=== PATIENT | male | born 1950 | race Caucasian/White ===

== ENCOUNTER 2019-04-28 10:17 | Outpatient (CLI) | payer MEDICARE, SELFPAY | END 2019-04-28 10:18 | disposition home or self-care (01) | LOC: ONCMED 10:17 | PROVIDERS: Visit Provider Internal Medicine Hematology & Oncology | DX: Z08 Encounter for follow-up examination after completed treatment for malignant neoplasm (principal); Z85.038 Personal history of other malignant neoplasm of large intestine; J44.9 Chronic obstructive pulmonary disease, unspecified; I25.10 Atherosclerotic heart disease of native coronary artery without angina pectoris; I25.2 Old myocardial infarction; E78.5 Hyperlipidemia, unspecified; Z90.49 Acquired absence of other specified parts of digestive tract; Z87.891 Personal history of nicotine dependence; Z92.21 Personal history of antineoplastic chemotherapy | CPT/HCPCS: 99204 ==

== ENCOUNTER 2019-05-18 08:26 | Outpatient (CLI) | payer MEDICARE, SELFPAY ==
--- NOTE | 2019-05-18 08:41 | CT_ITS ---
WS: [id number] CT CHEST, ABDOMEN, AND PELVIS TECHNIQUE: Contrast-enhanced CT of the chest, abdomen, and pelvis with coronal and sagittal reformatt ed images. CLINICAL INFORMATION: COLON CANCER COMPARISON: None. DLP: 1472.[address] scans at [facility] use at least one of these dose optimization techniques: automat ed exposure control; mA and/or kV adjustment per patient size (includes targeted exams where dose is matched to clinical indication); or iterative reconstruction. CT CHEST: Moderate chronic emphysematous changes. No acute pulmonary infiltrates. Slight bibasilar atelectasis. No consolidation or pleural fluid. No suspicious pulmonary parenchymal abnormalities. Thyroid gland is normal. No mediastinal or hilar lymphadenopathy. Coronary calcification. Normal endo bronchial tree. No axillary lymphadenopathy. Hypertrophic changes thoracic spine with mild thoracic c urve. CT ABDOMEN AND PELVIS: Mild diffuse fatty infiltration of the liver. Cholecystectomy clips. Normal portal vein and splenic v ein. Normal spleen. Normal GE junction. Diffuse segment of colonic wall thickening ascending right co tariq and hepatic flexure with stenosis presumably due to patient's known carcinoma. Dominant area of t hickening extends over approximately 6.5 CM. Additional less prominent thickening extending into the hepatic flexure. Mid and distal transverse colon are normal. Descending colon and sigmoid colon are n ormal. Prior postoperative changes distal sigmoid with end-to-end anastomosis. Normal spleen. Normal pancreatic parenchymal enhancement. Normal caliber abdominal aorta. Mild aortic calcification. Adrenal glands are normal. Small bilateral peripelvic renal cysts. No hydronephrosis. Mild renal cortical atrophy. A few slightly prominent upper abdominal lymph nodes largest measuring 10 mm not pathologically enlar ged. No periaortic or retroperitoneal lymphadenopathy. No inguinal or pelvic sidewall lymphadenopathy . Prostate enlargement measuring 5.[address]/CT chest abd pel w con* IMPRESSION: 1. Diffuse segment of colonic wall thickening consistent with patient's known carcinoma involving the right ascending colon and hepatic flexure. 2. No evidence of distant metastatic disease in the chest abdomen or pelvis. 3. A few prominent lymph nodes in the upper abdomen not pathologically enlarge d. 4. No evidence of metastatic disease in the chest. No mediastinal or hilar lym phadenopathy. 5. Moderate chronic emphysematous changes. 6. Prostate enlargement measuring 5.3 x 4.4 CM. Recommend Correlation PSA.
[2019-05-18 09:19] LABS: Basophils % 0.6 %; Eosinophils # 0.2 10^3/uL (0.0-0.8); Eosinophils % 2.3 %; Hematocrit 48.3 % (42.0-52.0); Hemoglobin 16.6 g/dL (11.7-16.6); Lymphocytes % 30.9 %; Mean Corpuscular HGB Conc 34.4 g/dL (30.0-36.0); Mean Corpuscular Hemoglobin 29.1 pg (28.0-34.0); Mean Corpuscular Volume 84.6 fL (80-94); Mean Platelet Volume 9.4 fL (7.4-10.4); Monocytes # 0.6 10^3/uL (0.2-0.9); Monocytes % 9.9 %; Neutrophils # 3.6 10^3/uL (1.8-7.7); Nucleated Red Blood Cells % 0 %; Platelet Count 186 10^3/cmm (130-400); Red Blood Count 5.71 10^6/uL (4.1-5.3); Red Cell Distribution Width 12.2 % (12.1-15.1); White Blood Count 6.4 10^3/uL (4.0-10.0)
[2019-05-18 09:38] LABS: Carcinoembryonic Antigen 1.6 ng/mL (0.0-4.7)
[2019-05-18 09:49] LABS: Alanine Aminotransferase 24 U/L (0-41); Albumin Level 4.1 g/dL (3.5-5.2); Alkaline Phosphatase 90 IU/L (40-130); Anion Gap 15.7 (5-19); Aspartate Amino Transferase 17 U/L (0-40); Blood Urea Nitrogen 13 mg/dL (8-23); Calcium 9.7 mg/dL (8.5-10.5); Carbon Dioxide 28 mmol/L (22-29); Chloride 98 mmol/L (98-107); Globulin 3.6 g/dL (1.3-4.6); Glomerular Filtration Rate 84.4 mL/min (90-130); Glucose 104 mg/dL (65-115); Potassium 4.7 mmol/L (3.5-5.1); Sodium 137 mmol/L (136-145); Total Bilirubin 0.5 mg/dL (0.15-1.2); Total Protein 7.7 g/dL (6.6-8.7)
[2019-05-18] MEDS: iohexol 300 mg/mL 100 mL Btl IV (10:13)
[2019-05-18] MEDS: iohexol 300 mg/mL 50 mL Btl PO (10:15)
== END 2019-05-18 08:27 | disposition home or self-care (01) ==
PROVIDERS: PCP Internal Medicine Hematology & Oncology; Visit Provider Internal Medicine Hematology & Oncology
DX: C18.2 Malignant neoplasm of ascending colon (principal); N40.0 Benign prostatic hyperplasia without lower urinary tract symptoms; Z90.49 Acquired absence of other specified parts of digestive tract
CPT/HCPCS: 36415; 71260; 74177; 80053; 82378; 85025; Q9967

== ENCOUNTER 2019-05-20 08:12 | Outpatient (CLI) | payer MEDICARE, SELFPAY ==
--- NOTE | 2019-05-20 10:31 | ONC FU_ITS ---
Dr. Villatoro follow up note Patient: Donavon Hinton Unit #: [id number]: 1950 Dicatated By: Mohinder Villatoro M.D.Date of Visit:May 20, 2019 Onc Med Follow-up/Prog Note History of Present Illness: Mr. Donavon Hinton, is a 68-year-old gentleman with a history of colon cancer with liver metastases diagnosed per colonoscopy done on 05/02/2016 which showed sigmoid colon mass biopsy biopsy confirmed adenocarcinoma underwent sigmoid colon resection on 08/13/2016 , CT scan/PET scan/MRI scan of liver confirmed single liver metastases patient received 4 cycles of FOLFOX till 10/16/2016 and on 11/12/2016 underwent hepatic resection for solitary liver metastases followed by adjuvant FOLFOX, patient agreed for 4 cycle although 8 more cycles were suggested. He was followed in oncology clinic in [place] with CT scan of chest abdomen pelvis and tumor marker CEA and was in remission, and last visit was on 04/29/2018 at that time he was told he is in complete remission and suggested to get follow-up CT scan of chest abdomen pelvis in a year. Patient moved down to [facility] because of cost of living in the [place] and close to his brother who lives in [facility]. f/u CT scan of abdomen pelvis done on 05/18/2019 showed diffuse segment of colonic wall thickening consistent with patient known carcinoma involving the right ascending colon and hepatic flexure. No evidence of distant metastases in the chest abdomen pelvis. A few prominent lymph nodes in the upper abdomen not pathologically enlarged. Moderate chronic emphysematous changes. Prostrate enlargement 5.3 x 4.4 cm. Came for follow-up, denies any specific complaints except off and on constipation and abdominal fullness especially with large meals otherwise no fever or chills no melena hematochezia no hemoptysis no hematemesis. No jaundice. Occasionally abdominal cramps. Medications: Medical [place] Miscellaneous Allergies: No Known Allergies. Review of Systems: Constitutional - Appetite is good and weight is increasing. No fever, chills, hot flashes, or night sweats. Energy level is good, ENMT - No sinus congestion/drainage. No mouth sores. No sore throat or difficulty swallowing, Hematologic/Lymphatic - Positive for easy bruising, Respiratory - No shortness of breath. No cough. No pleuritic pain or hemoptysis, Cardiovascular - No angina pain. No palpitations, Gastrointestinal - No nausea or vomiting. No heartburn or acid reflux. No diarrhea. Positive for constipation. No blood in the stool or black stools, Genitourinary (M) - No dysuria or hematuria. No urinary frequency. No urgency or incontinence, Musculoskeletal - Positive for joint pain, Neurologic - No headache or dizziness. No numbness/paresthesias or other focal neurologic symptoms, Psychiatric - No anxiety or depression. Positive for insomnia. Vital Signs: Performed on May 20, 2019 08:32 Height - 66.00 in Weight - 187.2 lbs (HIGH) BSA - 1.94 sq.m BMI - 30.22 (HIGH) Temperature - 97.5 F (LOW) Pulse - 72 /min Respiration - 18 /min BP - 144/91 mm(hg) (HIGH) O2 Sat - 97 % Pain - 0 Performance Status: 0 - Fully active, able to carry on all predisease activities without restrictions. (ECOG) Physical Examination: ENMT - No oral exudates, ulcers, masses, thrush or mucositis. Oropharynx clear. Tongue normal, Respiratory - Lungs are clear to auscultation without rhonchi or wheezing, Cardiovascular - Regular rate and rhythm of heart, Abdomen - Non-tender, non-distended, Good bowel sounds. No guarding or rebound tenderness. No pulsatile masses, Extremities - no edema. Lab/Imaging: Most recent lab results are not available for this patient. Impression: Metastatic colon cancer with solitary liver metastases diagnosed on 05/02/2016 per colonoscopy examination which showed sigmoid colon mass underwent CT scan/PET scan/MRI scan which confirms tolerating hepatic metastases. Patient underwent resection of sigmoid colon on 08/13/2016, followed by 4 cycles of chemotherapy with FOLFOX till 10/16/2016 followed by hepatic solitary metastases resection on 11/12/2016 followed by adjuvant chemotherapy with FOLFOX although suggested 8 cycles of chemotherapy but patient took only four.. Follow-up colonoscopy 1 year after surgery was unremarkable. Now in remission confirmed with follow-up CT scans and CEA, last visit with his oncologist in [place] was on 04/29/2018. Marijuana use Plan: Discussed with patient regarding his labs white blood count 6.4 hemoglobin 16.6 crit 48.3 platelets 186,000 CMP within normal limits CEA 1.[address] scan of chest abdomen pelvis findings which showed thickening of ascending colon/hepatic flexure Clinically, patient is doing well, now with vague symptoms like off and on constipation, abdominal fullness with large meals, but no fever or chills no night sweats. Lab workup within normal range including tumor marker CEA but follow-up CT scan of chest abdomen pelvis showed diffuse segment of ascending colon wall thickening , patient said he had colonoscopy done in 2017 showed no abnormality. Possibilities causing diffuse thickness of ascending colon could be inflammatory or malignancy like colon cancer, patient has history of polyps removal in the past. At this point we will refer him GI surgery for evaluation including colonoscopy and surgery. return to clinic 1 week after colonoscopy is done. Signed By: Mohinder Villatoro M.D. <<Signature on File>>
== END 2019-05-20 08:13 | disposition home or self-care (01) ==
LOC: ONCMED 08:15
PROVIDERS: PCP Internal Medicine Hematology & Oncology; Visit Provider Internal Medicine Hematology & Oncology
DX: Z85.038 Personal history of other malignant neoplasm of large intestine (principal); K59.00 Constipation, unspecified; R19.8 Other specified symptoms and signs involving the digestive system and abdomen; F12.90 Cannabis use, unspecified, uncomplicated; Z92.21 Personal history of antineoplastic chemotherapy; Z90.49 Acquired absence of other specified parts of digestive tract
CPT/HCPCS: 99214

== ENCOUNTER 2022-12-17 08:41 | Emergency (ER) | payer MEDICARE, SELFPAY ==
[2022-12-17 09:01] VITALS: BP 156/104; PULSE 130; RESP 20; TEMP 36.6; O2SAT 95
--- NOTE | 2022-12-17 09:08 | CT_ITS ---
WS: [id number] CT NECK TECHNIQUE: Contrast-enhanced CT of the neck with coronal and sagittal reformatted images. CLINICAL INFORMATION: large [employer] COMPARISON: None. DLP: 192.65 mgy/cm All CT scans at [facility] use at least one of these dose optimization techniques: automated e xposure control; mA and/or kV adjustment per patient size (includes targeted exams where dose is matc hed to clinical indication); or iterative reconstruction. FINDINGS: Large peripheral enhancing central low-attenuation RIGHT tonsillar mass or abscess. This measures jenni roximately 4.2 x 2.8 x 3.6 cm. This involves the RIGHT [place] tonsil with RIGHT to LEFT mass effect on the oropharynx. Lobulated enhancing abscess or neoplasm extends to the RIGHT tongue base and subm andibular space. Enhancing submandibular lymph nodes. Moderate edema involving the uvula and RIGHT gr eater than LEFT supraglottic soft tissues. Subglottic airway is patent. No left-sided cervical lymphadenopathy. LEFT [place] tonsil is normal. Emphysematous changes in the lung apices. Moderate spondylitic changes cervical spine. Straightening with slight reversal normal cervical lordosis. Paranasal sinuses are well aerated. Mastoid air cells are well aerated. Normal thyroid gland enhancement. IMPRESSION: 1. Enhancing lobulated RIGHT tonsillar abscess or necrotic neoplasm measuring 4.2 x 2.8 x 3.6 cm. 2. Associated mass effect on the oropharynx with RIGHT to LEFT mass effect. Moderate edema in the uv nuvia and epiglottis. 3. Abscess or neoplasm extends to the tongue base on the RIGHT and RIGHT submandibular space. Enhanc ing enlarged RIGHT submandibular lymph nodes. 4. Parotid glands are normal. Normal LEFT submandibular gland. 5. Paranasal sinuses and mastoid air cells are well aerated. 6. Moderate spondylitic changes cervical spine with reversal of the normal cervical lordosis. Notified AIME Rosa at 12/17/2022 10:51 AM.
--- NOTE | 2022-12-17 09:11 | ED_ITS ---
I have seen and examined the patient. I performed incision and drainage of right peritonsillar abscess. Documented by User: AIME Rosa 12/17/22 13:33 HPI - General Adult General: Chief complaint: General Medical Stated complaint: lump in throat Time Seen by Provider: 12/17/22 08:58 Source: patient Mode of arrival: ambulatory Limitations: no limitations History of Present Illness: Patient is a 72-year-old male who presents to ED today with a complaint of a lump in his throat . Patient states it feels like the right side of his neck is swollen. Patient states he was seen recently and was told this could be an enlarged lymph node. He states he was given IM antibiotics and placed on Keflex. Patient states symptoms seem to progressively worsen. He states he is not able to eat or drink secondary to the swelling and pain. He is not drooling. No fevers. He does arrive to the ED tachycardic at 130. Onset (ago): day(s) Location: neck (throat) Severity: severe Pain Consistency: constant Relieving factors: none Exacerbating factors: other (swallowing ) Associated symptoms: Reports no associated symptoms; Deny chest pain, dyspnea, headache(s), malaise, nausea, rash or vomiting Treatments prior to arrival: none Review of Systems Const: Denies: fever(s), chills, body aches, fatigue or malaise Eyes: Denies: change in vision, blurry vision, photophobia, floaters or seeing flashes ENMT: Reports: throat pain, uvular edema and odynophagia; Denies: swelling of lips/tongue, ear or mastoid pain, nasal discharge, nasal congestion or sinus pain Card: Denies: chest pain Resp: Denies: dyspnea GI: Denies: abdominal pain, nausea, vomiting or diarrhea Musc: Reports: neck pain; Denies: back pain, extremity pain, extremity swelling, joint pain or joint swelling Skin/Breast: Denies: rash Neuro: Denies: headache(s), numbness in extremities, weakness in extremities, sensory changes or dizziness [facility] ED PFSH: Social History Smoking and tobacco status: former smoker Alcohol intake: never Substance/Drug Use: never Marital status: Physical Exam Const: COMMON NORMALS: no acute distress, patient oriented x3, no limitations and alert GENERAL APPEARANCE: cooperative ORIENTATION/CONSCIOUSNESS: Yes awake, Yes oriented to person, Yes oriented to place and Yes oriented to time HENMT: COMMON NORMALS: normocephalic, atraumatic, TM's normal bilaterally and Normal external nose present HEAD & SCALP: normal to inspection, normocephalic and atraumatic FACE & SINUS: normal facial exam and sinuses nontender NOSE: Normal external nose present TYMPANIC MEMBRANE: TM's normal bilaterally MOUTH: lip normal and other (significant white plaque throughout oral cavity) TEETH & GINGIVA: Yes edentulous THROAT: pe ritonsillar mass right (uvular displacement) fluctuant, tender and edematous, posterior oropharynx abnormal and uvular edema OTHER: patient with upper/lower dentures; significant white plaque present which is probably lakisha given the fact that he rarely removes/cleans his dentures; some denture stomatitis noted; could possibly be leukoplakia; patient has a very large R sided SHEET LAYER with uvula deviation and muffled voice Eye: GENERAL EYE: appearance normal, both eyes and all related structures Neck/C-Spine: COMMON NORMALS: full ROM GENERAL: Yes normal visual inspection, No anterior neck swelling and No submandibular swelling Resp: COMMON NORMALS: normal respiratory effort and clear to auscultation bilaterally AUSCULTATION: clear to auscultation bilaterally Cardio: COMMON NORMALS: regular rhythm RATE: tachycardic RHYTHM: regular rhythm Neuro: RAD COMA SCALE: document GCS findings [place] coma scale eye opening: Spontaneous Rad coma scale verbal response: Orientated [place] coma scale motor response: Obey commands Rad coma scale total score: 15 COMMON NORMALS: patient oriented x3, CN's II-XII intact bilaterally, moves all extremities, no focal motor deficits and no sensory deficits noted SENSORIUM/ORIENTATION: Yes alert, Yes oriented to person, Yes oriented to place and Yes oriented to time Skin: COMMON NORMALS: no rashes or lesions noted GENERAL SKIN EXAM: no rashes or lesions noted Course Consultations: Consultation #1: Dr. Foster-recommended transfer for drainage as he was not promotions specialist-office was contacted again after I&D performed by Dr. Elizalde and I spoke to JOY Coelho who stated that Dr. Foster can follow up with him tomorrow at 1:00 Consultation #2: Dr. Hernandez-[facility]-recommends attempting drainage here to confirm abscess or tumor; if abscess he can f/u tomorrow morning; if tumor he will consult with colleagues who treat head and neck cancers and get him follow- up Vital Signs: Vital signs: Vital Signs Temperature 97.8 F 12/17/22 09:01 Pulse Rate 96 12/17/22 12:14 Respiratory Rate 16 12/17/22 09:35 Blood Pressure 139/100 12/17/22 12:14 Pulse Oximetry 94 12/17/22 12:14 Oxygen Delivery Me thod Room Air 12/17/22 12:14 MDM - General Adult Medical Decision Making Patient is a very nice 72-year-old male who presents to ED today with a complaint of right-sided throat pain. On exam he was found to have what looks to be a very large right-sided peritonsillar abscess with uvular displacement. CT imaging showing a large mass measuring approximately 4 x 3 x 3 cm. Radiolo gist stated this could be an abscess versus a necrotic tumor. I did initially speak to Dr. Foster here who recommended transfer for drainage as he was not on- call. I did try to contact Dr. Valdes as well as family states transfer would be difficult transportation [place]. Unfortunately Dr. Valdes was out ill. I spoke to ENT physician Dr. Hernandez at [facility] who stated if we could attempt drainage here just to be able to confirm the presence of purulent drainage/abscess versus a tumor that that would be incredibly helpful for him to guide treatment stating that if it was an abscess he could follow-up in office tomorrow or if it was a tumor he could get him set up with his colleagues that treat head and neck cancers. I spoke to Dr. Elizalde who was willing to drain abscess here. He performed an incision and drainage of a large amount of purulent material expressed. We will have him discontinue the Keflex and start him on Augmentin. I did recontact Dr. Foster's office now that abscess was drained and spoke to his nurse practitioner Sade who stated Dr. Foster can follow-up tomorrow at 1:00 in office. Return ED precautions given. Lab Data 12/17/22 09:20 12/17/22 09:20 Laboratory Results WBC 13.45 10^3/uL (3.29-11.43) H 12/17/22 09:20 RBC 6.02 10^6/uL (3.85-5.65) H 12/17/22 09:20 Hgb 18.00 g/dL (11.27-16.99) H 12/17/22 09:20 Hct 51.9 % (37-53) 12/17/22 09:20 MCV 86.2 fl (82-101) 12/17/22 09:20 MCH 29.9 pg (27-33) 12/17/22 09:20 MCHC 34.7 g/dL (30-55) 12/17/22 09:20 RDW 13.0 % (12.1-15.1) 12/17/22 09:20 Plt Count 203 10^3/cmm (157-399) 12/17/22 09:20 MPV 8.9 fL (7.4-10.4) 12/17/22 09:20 Neut % (Auto) 82.5 % 12/17/22 09:20 Lymph % (Auto) 7.1 % 12/17/22 09:20 [place] % (Auto) 9.7 % 12/17/22 09:20 Eos % (Auto) 0.0 % 12/17/22 09:20 Baso % (Auto) 0.3 % 12/17/22 09:20 Neut # (Auto) 11.10 10^3/uL (1.8-7.7) H 12/17/22 09:20 Lymph # (Auto) 1.0 10^3/uL (0.8-4.8) 12/17/22 09:20 [place] # (Auto) 1.3 10^3/uL (0.2-0.9) H 12/17/22 09:20 Eos # (Auto) 0.0 10^3/uL (0.0-0.8) 12/17/22 09:20 Baso # (Auto) 0.0 10^3/uL (0.0-0.1) 12/17/22 09:20 Nucleated RBC % (auto) 0 % 12/17/22 09:20 Nucleated RBCs # 0.0 /100WBC 12/17/22 09:20 Sodium 138 mmol/L (136-145) 12/17/22 09:20 Potassium 3.9 mmol/L (3.5-5.1) 12/17/22 09:20 Chloride 98 mmol/L (98-107) 12/17/22 09:20 Carbon Dioxide 24 mmol/L (22-29) 12/17/22 09:20 Anion Gap 19.9 (5-19) H 12/17/22 09:20 BUN 28 mg/dL (8-23) H 12/17/22 09:20 Creatinine 0.9 mg/dL (0.7-1.2) 12/17/22 09:20 GFR Calculation 83.4 mL/min (90-130) L 12/17/22 09:20 Glucose 127 mg/dL (65-115) H 12/17/22 09:20 Calculated Osmolality 293 mOsm/kg (285-295) 12/17/22 09:20 Lactic Acid 1.8 mmol/L (0.5-2.2) 12/17/22 09:20 Calcium 9.8 mg/dL (8.5-10.5) 12/17/22 09:20 Total Bilirubin 1.0 mg/dL (0.15-1.2) 12/17/22 09:20 AST 10 U/L (0-40) 12/17/22 09:20 ALT 8 U/L (0-41) 12/17/22 09:20 Alkaline Phosphatase 81 U/L (40-130) 12/17/22 09:20 Total Protein 8.2 g/dL (6.6-8.7) 12/17/22 09:20 Albumin 4.2 g/dL (3.5-5.2) 12/17/22 09:20 Globulin 4.0 g/dL (1.3-4.6) 12/17/22 09:20 Group A Strep Rapid Negative (Negative) 12/17/22 09:40 All radiology interpretation(s) finalized by discharge Discharge Plan Discharge Patient Disposition: Home Clinical Impression: Peritonsillar abscess Condition: Stable Prescriptions: New amoxicillin-pot clavulanate 875-125 mg tablet 1 tab PO BID Qty: 14 0RF Discontinued cephalexin 500 mg capsule 500 mg PO TID 10 Days Qty: 30 0RF No Action cetirizine [Zyrtec] 10 mg tablet 10 mg PO DAILY PRN (Reason: allergy symptoms) Qty: 30 0RF Discharge Orders: Discharge ED (Routine); Ordered 12/17/22 Ordered By: Zora Palumbo Referrals: Kareem Foster MD [Physician] - Mohinder Villatoro MD [Primary Care Provider] - Patient Instructions: Peritonsillar Abscess (DC), Peritonsillar Abscess - Adult Activity Restrictions/Additional Instructions: As we discussed we are switching your antibiotics. You need to fill the Augmentin and start it immediately. You will follow-up with Dr. Foster, ENT specialist at 1:00 tomorrow. His office information and phone number has been attached your discharge paperwork. You may begin eating and drinking soft foods as tolerated. As we discussed swish/gargle with water following eating. Return to the emergency department for any worsening pain, difficulty breathing or swallowing, trouble controlling your saliva/drooling, or any other concerns you may have. I hope you begin to feel better soon. Coding Level of Care Code ED Workforce Development Program Director for [facility] Documented by User: Hank Elizalde MD 12/17/22 12:54 HPI - General Adult General: Chief complaint: General Medical Stated complaint: lump in throat Time Seen by Provider: 12/17/22 08:58 PFSH ED PFSH: Social History Smoking and tobacco status: former smoker Alcohol intake: never Substance/Drug Use: never Marital status: Physical Exam Neuro: RAD COMA SCALE: document GCS findings Rad coma scale total score: 15 Procedures Abscess I/D Site: oral (right SHEET LAYER) Side (if applicable): right Sedation/analgesia: none Local Anesthetic: other anesthetic (cetacaine) Technique: incised with #11 blade Amount of fluid expressed (mL): 7 Irrigation: No (emptied by pressure and spreading incision until empty) Packing used?: none Complications: other (none) Course ED course: Dr Elizalde: Discussed case with Zora Martinez performed I&D of SHEET LAYER (right). Copious purulent discharge expressed. Discussed Augmentin coverage and f/u with ENT. Vital Signs: Vital signs: Vital Signs Temperature 97.8 F 12/17/22 09:01 Pulse Rate 96 12/17/22 12:14 Respiratory Rate 16 12/17/22 09:35 Blood Pressure 139/100 12/17/22 12:14 Pulse Oximetry 94 12/17/22 12:14 Oxygen Delivery Me thod Room Air 12/17/22 12:14 MDM - General Adult Lab Data 12/17/22 09:20 12/17/22 09:20 Laboratory Results WBC 13.45 10^3/uL (3.29-11.43) H 12/17/22 09:20 RBC 6.02 10^6/uL (3.85-5.65) H 12/17/22 09:20 Hgb 18.00 g/dL (11.27-16.99) H 12/17/22 09:20 Hct 51.9 % (37-53) 12/17/22 09:20 MCV 86.2 fl (82-101) 12/17/22 09:20 MCH 29.9 pg (27-33) 12/17/22 09:20 MCHC 34.7 g/dL (30-55) 12/17/22 09:20 RDW 13.0 % (12.1-15.1) 12/17/22 09:20 Plt Count 203 10^3/cmm (157-399) 12/17/22 09:20 MPV 8.9 fL (7.4-10.4) 12/17/22 09:20 Neut % (Auto) 82.5 % 12/17/22 09:20 Lymph % (Auto) 7.1 % 12/17/22 09:20 [place] % (Auto) 9.7 % 12/17/22 09:20 Eos % (Auto) 0.0 % 12/17/22 09:20 Baso % (Auto) 0.3 % 12/17/22 09:20 Neut # (Auto) 11.10 10^3/uL (1.8-7.7) H 12/17/22 09:20 Lymph # (Auto) 1.0 10^3/uL (0.8-4.8) 12/17/22 09:20 [place] # (Auto) 1.3 10^3/uL (0.2-0.9) H 12/17/22 09:20 Eos # (Auto) 0.0 10^3/uL (0.0-0.8) 12/17/22 09:20 Baso # (Auto) 0.0 10^3/uL (0.0-0.1) 12/17/22 09:20 Nucleated RBC % (auto) 0 % 12/17/22 09:20 Nucleated RBCs # 0.0 /100WBC 12/17/22 09:20 Sodium 138 mmol/L (136-145) 12/17/22 09:20 Potassium 3.9 mmol/L (3.5-5.1) 12/17/22 09:20 Chloride 98 mmol/L (98-107) 12/17/22 09:20 Carbon Dioxide 24 mmol/L (22-29) 12/17/22 09:20 Anion Gap 19.9 (5-19) H 12/17/22 09:20 BUN 28 mg/dL (8-23) H 12/17/22 09:20 Creatinine 0.9 mg/dL (0.7-1.2) 12/17/22 09:20 GFR Calculation 83.4 mL/min (90-130) L 12/17/22 09:20 Glucose 127 mg/dL (65-115) H 12/17/22 09:20 Calculated Osmolality 293 mOsm/kg (285-295) 12/17/22 09:20 Lactic Acid 1.8 mmol/L (0.5-2.2) 12/17/22 09:20 Calcium 9.8 mg/dL (8.5-10.5) 12/17/22 09:20 Total Bilirubin 1.0 mg/dL (0.15-1.2) 12/17/22 09:20 AST 10 U/L (0-40) 12/17/22 09:20 ALT 8 U/L (0-41) 12/17/22 09:20 Alkaline Phosphatase 81 U/L (40-130) 12/17/22 09:20 Total Protein 8.2 g/dL (6.6-8.7) 12/17/22 09:20 Albumin 4.2 g/dL (3.5-5.2) 12/17/22 09:20 Globulin 4.0 g/dL (1.3-4.6) 12/17/22 09:20 Group A Strep Rapid Negative (Negative) 12/17/22 09:40 Discharge Plan Discharge Patient Disposition: Home Clinical Impression: Peritonsillar abscess Condition: Stable Prescriptions: New amoxicillin-pot clavulanate 875-125 mg tablet 1 tab PO BID Qty: 14 0RF Discontinued cephalexin 500 mg capsule 500 mg PO TID 10 Days Qty: 30 0RF No Action cetirizine [Zyrtec] 10 mg tablet 10 mg PO DAILY PRN (Reason: allergy symptoms) Qty: 30 0RF Discharge Orders: Discharge ED (Routine); Ordered 12/17/22 Ordered By: Zora Palumbo Referrals: Kareem Foster MD [Physician] - Mohinder Villatoro MD [Primary Care Provider] - Patient Instructions: Peritonsillar Abscess (DC), Peritonsillar Abscess - Adult Activity Restrictions/Additional Instructions: As we discussed we are switching your antibiotics. You need to fill the Augmentin and start it immediately. You will follow-up with Dr. Foster, ENT specialist at 1:00 tomorrow. His office information and phone number has been attached your discharge paperwork. You may begin eating and drinking soft foods as tolerated. As we discussed swish/gargle with water following eating. Return to the emergency department for any worsening pain, difficulty breathing or swallowing, trouble controlling your saliva/drooling, or any other concerns you may have. I hope you begin to feel better soon. Coding Level of Care Code ED Workforce Development Program Director for Cherelle Salgado
[2022-12-17] MEDS: ampicillin-sulbactam 3 GM in sodium chloride 0.9% (plus) 50 ML IV (09:29)
[2022-12-17] MEDS: dexamethasone 10 mg/mL INJ IVP (09:29)
[2022-12-17 09:30] LABS: Basophils % 0.3 %; Hematocrit 51.9 % (37-53); Lymphocytes % 7.1 %; Mean Corpuscular HGB Conc 34.7 g/dL (30-55); Mean Corpuscular Hemoglobin 29.9 pg (27-33); Mean Corpuscular Volume 86.2 fl (82-101); Mean Platelet Volume 8.9 fL (7.4-10.4); Monocytes # 1.3 10^3/uL (0.2-0.9); Monocytes % 9.7 %; Neutrophils % 82.5 %; Nucleated Red Blood Cells % 0 %; Platelet Count 203 10^3/cmm (157-399); Red Blood Count 6.02 10^6/uL (3.85-5.65); White Blood Count 13.45 10^3/uL (3.29-11.43)
[2022-12-17] MEDS: sodium chloride 0.9% 1,000 ML 999 ML IV (09:33)
--- NOTE | 2022-12-17 09:33 | PC.NURSE ---
PT FLUIDS WERE STARTED AND DEX PUSHED WITH FLUIDS TO DILUTE. PT ANTIBIOTICS STARTED AFTER LINE FLUSHED AND HUNG AFTER CULTURES TAKEN.
[2022-12-17 09:35] VITALS: BP 156/104; PULSE 93; RESP 16; O2SAT 93
[2022-12-17 09:45] LABS: Lactic Sepsis W/Reflex 1.8 mmol/L (0.5-2.2)
[2022-12-17 09:46] LABS: Alanine Aminotransferase 8 U/L (0-41); Albumin Level 4.2 g/dL (3.5-5.2); Alkaline Phosphatase 81 U/L (40-130); Anion Gap 19.9 (5-19); Aspartate Amino Transferase 10 U/L (0-40); Blood Urea Nitrogen 28 mg/dL (8-23); Calcium 9.8 mg/dL (8.5-10.5); Carbon Dioxide 24 mmol/L (22-29); Chloride 98 mmol/L (98-107); Glomerular Filtration Rate 83.4 mL/min (90-130); Glucose 127 mg/dL (65-115); Osmolality Calculated 293 mOsm/kg (285-295); Potassium 3.9 mmol/L (3.5-5.1); Sodium 138 mmol/L (136-145); Total Protein 8.2 g/dL (6.6-8.7)
[2022-12-17] MEDS: iohexol 350 mg/mL 500 mL Btl (per mL) IV (09:59)
[2022-12-17 10:12] LABS: Rapid Strep A Test Negative (Negative)
--- NOTE | 2022-12-17 10:14 | PC.NURSE ---
PT STATES HE HAS SOME THRUSH IN MOUTH. WHITE BUMPS ARE PRESENT, PT STATES HE FEELS LIKE THIS IS DUE TO PILL SITTING IN MOUTH UNABLE TO SWALLOW.
[2022-12-17 10:17] VITALS: BP 158/100; PULSE 92; O2SAT 94
[2022-12-17 11:26] VITALS: BP 141/94; PULSE 100; O2SAT 92
[2022-12-17 12:14] VITALS: BP 139/100; PULSE 96; O2SAT 94
[2022-12-17] MEDS: cetacaine Spray 20 gm Can 1 SPRAY TOPICAL (13:22)
== END 2022-12-17 13:22 | disposition home or self-care (01) ==
PROVIDERS: Emergency Provider Physician Assistant; PCP Internal Medicine Hematology & Oncology
DX: J36 Peritonsillar abscess (principal); Z87.891 Personal history of nicotine dependence
CPT/HCPCS: 36415; 42700; 70491; 80053; 83605; 85025; 87040; 87081; 87880; 96374; 99285; J0295; J1100; J7030; Q9967

== ENCOUNTER 2023-10-31 07:16 | Emergency (ER) | payer MEDICARE, SELFPAY ==
[2023-10-31 07:18] VITALS: BP 154/77; PULSE 66; RESP 18; TEMP 36.6; O2SAT 97
--- NOTE | 2023-10-31 07:34 | CTR_ITS ---
PROCEDURE INFORMATION: Exam: CT Abdomen And Pelvis With Contrast Exam date and time: 10/31/2023 8:19 AM Age: 73 years old Clinical indication: Abdominal pain; Localized; Lower; Additional info: Abd pain TECHNIQUE: Imaging protocol: Computed tomography of the abdomen and pelvis with contrast. Radiation optimization: All CT scans at this facility use at least one of these dose optimization techniques: automated exposure control; mA and/or kV adjustment per patient size (includes targeted exams where dose is matched to clinical indication); or iterative reconstruction. Contrast material: OMNI 350; Contrast volume: 100 ml; Contrast route: INTRAVENOUS (IV); COMPARISON: CT chest abdpel w/*[id number] 05/18/2019 10:26 AM RADIATION DOSE METRICS: Total DLP (mGy-cm): 416.82 FINDINGS: Lungs: Lung bases are clear as visualized. Liver: Focal area of low-density with adjacent marginal calcification noted involving the dome of the right lobe of the liver unchanged when compared to prior exam. This is of uncertain etiology but could be related to a focal area of scarring or fibrosis or could be postsurgical in nature. There is minimal intrahepatic biliary ductal dilatation. The liver is otherwise normal. Gallbladder and biliary ducts: There are surgical clips within the gallbladder fossa. Common bile duct measures 8-9 mm in size which is likely physiologic for patient's age and post cholecystectomy state. Pancreas: Normal. No ductal dilation. Spleen: Normal. No splenomegaly. Adrenal glands: Normal. No mass. Kidneys and ureters: There is mild hydronephrosis and/or parapelvic cysts bilaterally. The left ureter is completely decompressed. There is mild distension of the right ureter. Please note that the collecting systems are more distended on today's exam when compared to prior exam. Stomach and bowel: There is a suture line involving the rectosigmoid junction. There are a few air-fluid levels involving nondilated loops of small bowel and colon. This is a nonspecific finding but can be seen with an ileus. No large or small bowel wall thickening is appreciated. Appendix: No evidence of appendicitis. Intraperitoneal space: Unremarkable. No free air. No significant fluid collection. Vasculature: The aorta is normal in caliber. There is calcified plaque involving the aorta and its branch vessels. Lymph nodes: Unremarkable. No enlarged lymph nodes. Urinary bladder: No definite abnormalities are noted with regards to the urinary bladder. The bladder does not appear to be overly distended. Reproductive: Unremarkable as visualized. Bones/joints: Unremarkable. No acute fracture. Soft tissues: Unremarkable. CT/CT abdomen pelvis w con* [id number] IMPRESSION: 1. Air-fluid levels involving nondilated loops of bowel. This is a nonspecific finding but can be seen with an ileus. 2. Collecting system dilatation and/or parapelvic cysts involving both kidneys. The right ureter is minimally distended. This represents an interval change when compared to prior exam. Exact cause is uncertain. Recommend correlation with kidney function. 3. Mild intrahepatic biliary ductal dilatation. This was not definitely present on prior exam. The common bile duct is normal in size for patient's age and post cholecystectomy state. Recommend clinical correlation and correlation with liver function tests. This also represents an interval change when compared to prior exam. COMMENTS: Consistent with the [employer]'s Incidental Findings Committee white paper (J Am Nicole Radiol 2018): Any incidental renal lesion less than 1 cm or classified as too small to characterize, or any incidental cystic renal lesion characterized as simple-appearing, is likely benign. No follow-up imaging is recommended for these lesions per consensus recommendations based on imaging criteria.
--- NOTE | 2023-10-31 07:34 | W.ED.ABDPA2 ---
HPI - Abdominal Pain General: Chief Complaint: Abdominal Pain Stated Complaint: abd pain Time Seen by Provider: 10/31/23 07:19 History of Present Illness: 73-year-old male with a history of colon cancer with resection several years ago presents emergency room with suprapubic pain over the last day. He had normal bowel movements he has been able to urinate without difficulty denies any hematochezia melena hematemesis coffee-ground sties any dysuria urgency or frequency or hematuria no history of kidney stones. Pain radiates a little bit into the left low back. No fever sweats chills shortness of breath no chest pain. He was given narcotics and route by EMS and reports that his symptoms have for the most part resolved Associated Symptoms: Denies chills, dysuria and fever(s) Review of Systems Const: Denies: fever(s) or chills Card: Denies: chest pain Resp: Denies: dyspnea GI: Denies: abdominal pain : Denies: dysuria, urinary frequency or urinary urgency Musc: Denies: neck pain or back pain Skin/Breast: Denies: rash PFSH ED PFSH: Social History Smoking and tobacco/nicotine status: former use of tobacco/nicotine Alcohol intake: never Substance/Drug Use: never Marital status: Physical Exam Const: COMMON NORMALS: no acute distress GENERAL APPEARANCE: cooperative and comfortable ORIENTATION/CONSCIOUSNESS: Yes awake, Yes oriented to person, Yes oriented to place and Yes oriented to time HENMT: COMMON NORMALS: normocephalic, atraumatic and hearing grossly normal bilaterally HEAD & SCALP: normocephalic and atraumatic Resp: COMMON NORMALS: normal respiratory effort, No retractions, No use of accessory muscles and clear to auscultation bilaterally AUSCULTATION: clear to auscultation bilaterally Cardio: COMMON NORMALS: regular rate, regular rhythm and No murmurs present (Cardio) RATE: regular rate RHYTHM: regular rhythm GI: COMMON NORMALS: Soft to palpation and No hepatosplenomegaly present AUSCULTATION: Yes normoactive bowel sounds PALPATION: Yes Soft to palpation, No Tenderness to palpation present (GI), No Guarding due to palpation present (GI) and Yes No hepatosplenomegaly present Extremity: COMMON NORMALS: normal to inspection, capillary refill normal, no clubbing, cyanosis or edema, no calf tenderness and no pedal edema Neuro: SENSORIUM/ORIENTATION: Yes oriented to person, Yes oriented to place and Yes oriented to time Skin: COMMON NORMALS: no rashes or lesions noted GENERAL SKIN EXAM: no rashes or lesions noted Course Vital Signs: Vital signs: Vital Signs Temperature 97.9 F 10/31/23 07:18 Pulse Rate 64 10/31/23 10:11 Respiratory Rate 18 10/31/23 07:18 Blood Pressure 154/77 10/31/23 10:11 Pulse Oximetry 97 10/31/23 10:11 Oxygen Delivery Me thod Room Air 10/31/23 07:18 MDM - Abdominal Pain Medical Decision Making Patient states he is feeling much better several findings on the laboratory work and CT. His white count of 15,000 he does look like he has a little bit of a bladder infection are slightly more red and moist there was no major renal findings no renal stones on the CT there is also appearance of an ileus on the CT repeat exam his abdomen is nontender he states he much better and he would actually like to go home. Will treat him as an outpatient with cystitis he was given oral antibiotic if he has any worsening or change symptoms he should return immediately. Lab Data 10/31/23 07:40 10/31/23 07:40 Labs/Radiology: Radiology Impressions Abdomen/Pelvis CT 10/31/23 07:34 IMPRESSION: 1. Air-fluid levels involving nondilated loops of bowel. This is a nonspecific finding but can be seen with an ileus. 2. Collecting system dilatation and/or parapelvic cysts involving both kidneys. The right ureter is minimally distended. This represents an interval change when compared to prior exam. Exact cause is uncertain. Recommend correlation with kidney function. 3. Mild intrahepatic biliary ductal dilatation. This was not definitely present on prior exam. The common bile duct is normal in size for patient's age and post cholecystectomy state. Recommend clinical correlation and correlation with liver function tests. This also represents an interval change when compared to prior exam. COMMENTS: Consistent with the [employer]'s Incidental Findings Committee white paper (J Am Nicole Radiol 2018): Any incidental renal lesion less than 1 cm or classified as too small to characterize, or any incidental cystic renal lesion characterized as simple-appearing, is likely benign. No follow-up imaging is recommended for these lesions per consensus recommendations based on imaging criteria. Laboratory Results WBC 15.72 10^3/uL (3.29-11.43) H 10/31/23 07:40 RBC 5.20 10^6/uL (3.85-5.65) 10/31/23 07:40 Hgb 16.10 g/dL (11.27-16.99) 10/31/23 07:40 Hct 45.5 % (37-53) 10/31/23 07:40 MCV 87.5 fl (82-101) 10/31/23 07:40 MCH 31.0 pg (27-33) 10/31/23 07:40 MCHC 35.4 g/dL (30-55) 10/31/23 07:40 RDW 12.4 % (12.1-15.1) 10/31/23 07:40 Plt Count 161 10^3/cmm (157-399) 10/31/23 07:40 MPV 9.5 fL (7.4-10.4) 10/31/23 07:40 Neut % (Auto) 85.0 % 10/31/23 07:40 Lymph % (Auto) 7.1 % 10/31/23 07:40 [place] % (Auto) 6.9 % 10/31/23 07:40 Eos % (Auto) 0.1 % 10/31/23 07:40 Baso % (Auto) 0.3 % 10/31/23 07:40 Neut # (Auto) 13.37 10^3/uL (1.8-7.7) H 10/31/23 07:40 Lymph # (Auto) 1.1 10^3/uL (0.8-4.8) 10/31/23 07:40 [place] # (Auto) 1.1 10^3/uL (0.2-0.9) H 10/31/23 07:40 Eos # (Auto) 0.0 10^3/uL (0.0-0.8) 10/31/23 07:40 Baso # (Auto) 0.0 10^3/uL (0.0-0.1) 10/31/23 07:40 Nucleated RBC % (auto) 0 % 10/31/23 07:40 Nucleated RBCs # 0.0 /100WBC 10/31/23 07:40 Sodium 139 mmol/L (136-145) 10/31/23 07:40 Potassium 3.5 mmol/L (3.5-5.1) 10/31/23 07:40 Chloride 104 mmol/L (98-107) 10/31/23 07:40 Carbon Dioxide 21 mmol/L (22-29) L 10/31/23 07:40 Anion Gap 17.5 (5-19) 10/31/23 07:40 BUN 17 mg/dL (8-23) 10/31/23 07:40 Creatinine 1.0 mg/dL (0.7-1.2) 10/31/23 07:40 GFR Calculation Not Reportable 10/31/23 07:40 Glucose 131 mg/dL (65-115) H 10/31/23 07:40 Calculated Osmolality 291 mOsm/kg (285-295) 10/31/23 07:40 Calcium 9.2 mg/dL (8.5-10.5) 10/31/23 07:40 Total Bilirubin 1.1 mg/dL (0.15-1.2) 10/31/23 07:40 AST 14 U/L (0-40) 10/31/23 07:40 ALT 11 U/L (0-41) 10/31/23 07:40 Alkaline Phosphatase 72 U/L (40-130) 10/31/23 07:40 Total Protein 7.3 g/dL (6.6-8.7) 10/31/23 07:40 Albumin 4.2 g/dL (3.5-5.2) 10/31/23 07:40 Globulin 3.1 g/dL (1.3-4.6) 10/31/23 07:40 Lipase 16 U/L (13-60) 10/31/23 07:40 Urine Color Yellow (Yellow) 10/31/23 08:46 Urine Appearance Clear (CLEAR) 10/31/23 08:46 Urine pH 5 (5-7) 10/31/23 08:46 Ur Specific [place] 1.015 (1.005-1.030) 10/31/23 08:46 Urine Protein Trace (Negative) 10/31/23 08:46 Urine Glucose (UA) Norm (Normal) 10/31/23 08:46 Urine Ketones 80 (Negative) 10/31/23 08:46 Urine Blood 3+ (Negative) H 10/31/23 08:46 Urine Nitrate Negative (Negative) 10/31/23 08:46 Urine Bilirubin Neg (Negative) 10/31/23 08:46 Urine Urobilinogen Norm mg/dL (Negative) 10/31/23 08:46 Ur Leukocyte Esterase Negative (Negative) 10/31/23 08:46 Urine RBC 15-25 /hpf (0-2) H 10/31/23 08:46 Urine WBC 5-10 /hpf (0-5) H 10/31/23 08:46 Ur Squamous Epith Cells None /hpf (0-5) 10/31/23 08:46 Calcium Oxalate Crystal 10-15 /hpf H 10/31/23 08:46 Amorphous Sediment Not Reportable 10/31/23 08:46 Urine Bacteria 1+ /hpf (NONE) H 10/31/23 08:46 Urine Mucus 1+ /hpf 10/31/23 08:46 All radiology interpretation(s) finalized by discharge Discharge Plan Discharge Patient Disposition: Home Clinical Impression: Cystitis, Ileus Condition: Stable Prescriptions: New Cipro 500 mg tablet 500 mg PO BID Qty: 14 0RF No Action cetirizine [Zyrtec] 10 mg tablet 10 mg PO DAILY PRN (Reason: allergy symptoms) Qty: 30 0RF amoxicillin-pot clavulanate 875-125 mg tablet 1 tab PO BID Qty: 14 0RF Discharge Orders: Discharge ED (Routine); Ordered 10/31/23 Ordered By: Joe Laurent Referrals: Mohinder Villatoro MD [Primary Care Provider] - Discharge Diet: Clear Liquid Discharge Activity: Increase activity as tolerated Patient Instructions: Opioid Safety, Pain Management Activity Restrictions/Additional Instructions: Thank you for choosing [facility] for your healthcare needs today. It is very important that you follow up as instructed or that you return to the Emergency Department should you have concerns or if your condition changes or worsens in any way. You were seen today with complaints of abdominal pain which resolved after you are given medications by the ambulance crew. CT of your abdomen shows some dilation of the ducts from the kidneys but no signs of obstruction there is signs of infection in your urine and you did a white count was slightly elevated additionally there are signs of increased fluid in your bowels (ileus). Recommend clear liquid diet for the next 48 to 72 hours. Additionally was started on oral antibiotic you should follow-up with your primary care doctor early next week. Coding Level of Care Code ED [employer] for Cherelle Salgado
[2023-10-31 07:42] VITALS: BP 154/77; PULSE 67; O2SAT 97
[2023-10-31 07:46] LABS: Basophils % 0.3 %; Eosinophils % 0.1 %; Hematocrit 45.5 % (37-53); Lymphocytes # 1.1 10^3/uL (0.8-4.8); Lymphocytes % 7.1 %; Mean Corpuscular HGB Conc 35.4 g/dL (30-55); Mean Corpuscular Volume 87.5 fl (82-101); Mean Platelet Volume 9.5 fL (7.4-10.4); Monocytes # 1.1 10^3/uL (0.2-0.9); Monocytes % 6.9 %; Neutrophils # 13.37 10^3/uL (1.8-7.7); Nucleated Red Blood Cells % 0 %; Platelet Count 161 10^3/cmm (157-399); Red Cell Distribution Width 12.4 % (12.1-15.1); White Blood Count 15.72 10^3/uL (3.29-11.43)
[2023-10-31 08:08] LABS: Alanine Aminotransferase 11 U/L (0-41); Albumin Level 4.2 g/dL (3.5-5.2); Alkaline Phosphatase 72 U/L (40-130); Anion Gap 17.5 (5-19); Aspartate Amino Transferase 14 U/L (0-40); Blood Urea Nitrogen 17 mg/dL (8-23); Calcium 9.2 mg/dL (8.5-10.5); Carbon Dioxide 21 mmol/L (22-29); Chloride 104 mmol/L (98-107); Creatinine Clr Calc Pharmacy 61.8972; Globulin 3.1 g/dL (1.3-4.6); Glucose 131 mg/dL (65-115); Lipase 16 U/L (13-60); Osmolality Calculated 291 mOsm/kg (285-295); Potassium 3.5 mmol/L (3.5-5.1); Sodium 139 mmol/L (136-145); Total Bilirubin 1.1 mg/dL (0.15-1.2); Total Protein 7.3 g/dL (6.6-8.7)
[2023-10-31] MEDS: iohexol 350 mg/mL 500 mL Btl (per mL) IV (08:22)
[2023-10-31 08:47] VITALS: PULSE 64; O2SAT 97
[2023-10-31 08:53] LABS: Charge for UA Resulting for Rev
[2023-10-31 09:20] LABS: Glucose Urine UA Norm (Normal); Protein Urine Trace (Negative); Specific Gravity, Urine 1.015 (1.005-1.030); Urine Appearance Clear (CLEAR); Urine Color Yellow (Yellow); pH Urine 5 (5-7)
[2023-10-31 09:21] LABS: Ketones Urine 80 (Negative)
[2023-10-31 09:22] LABS: Bilirubin Urine Neg (Negative); Blood Urine 3+ (Negative); Leukocyte Esterase Urine Negative (Negative); Nitrate Urine Negative (Negative); RBC Urine 15-25 /hpf (0-2); Urobilinogen Urine Norm (Negative)
[2023-10-31 09:23] LABS: Add Urine Culture? Yes; Bacteria Urine 1+ /hpf; Mucus Urine 1+ /hpf
[2023-10-31 10:11] VITALS: BP 154/77; PULSE 64; O2SAT 97
== END 2023-10-31 10:11 | disposition home or self-care (01) ==
PROVIDERS: Emergency Provider Family Medicine; PCP Internal Medicine Hematology & Oncology
DX: N30.90 Cystitis, unspecified without hematuria (principal); K56.7 Ileus, unspecified; Z87.891 Personal history of nicotine dependence
CPT/HCPCS: 74177; 80053; 81003; 81015; 83690; 85025; 87086; 99285; Q9967

== ENCOUNTER → 2023-11-09 11:09 | Outpatient (BNVA) | payer MEDICARE, SELFPAY | PROVIDERS: PCP Internal Medicine Hematology & Oncology; Visit Provider Nurse Practitioner Family | DX: Z12.5 Encounter for screening for malignant neoplasm of prostate (principal); R73.9 Hyperglycemia, unspecified; E78.5 Hyperlipidemia, unspecified | CPT/HCPCS: 80053; 80061; 81000; 83036; 85025; G0103 ==

== ENCOUNTER 2023-11-18 08:47 | Oncology outpatient (recurring) (ONCR) | payer MEDICARE, SELFPAY | END 2023-11-28 23:55 | disposition home or self-care (01) | PROVIDERS: PCP Internal Medicine Medical Oncology; Visit Provider Internal Medicine Medical Oncology | DX: C18.7 Malignant neoplasm of sigmoid colon (principal) | CPT/HCPCS: 99215 ==

== ENCOUNTER → 2023-12-16 08:29 | Outpatient (BNVA) | payer MEDICARE, SELFPAY | PROVIDERS: PCP Internal Medicine Medical Oncology; Visit Provider Student in an Organized Health Care Education/Training Program | DX: Z12.11 Encounter for screening for malignant neoplasm of colon (principal) | CPT/HCPCS: 99024; 99204 ==

== ENCOUNTER 2023-12-29 06:15 | Day surgery (SDC) | payer MEDICARE, SELFPAY ==
[2023-12-29 06:39] VITALS: BP 151/98; PULSE 98; RESP 16; TEMP 36.3; O2SAT 96; BMI 24.2
[2023-12-29] MEDS: sodium chloride 0.9% 1,000 ML 30 ML IV (06:51)
--- NOTE | 2023-12-29 07:05 | W.PM.OPSUD ---
Surgery/Procedure H&P Update DATE OF PROCEDURE: December 29, 2023 DATE H&P PERFORMED: 12/16/23 H&P UPDATE INFORMATION: I have reviewed H&P completed within last 30 days, I have examined patient prior to procedure and No changes to prior documentation PLANNED PROCEDURE: Operation Date: 12/29/23 07:40 Proposed Procedures p Colonoscopy - 74752, G0105, Z12.11(Not Applicable) - Dash Franco MD
--- NOTE | 2023-12-29 07:07 | ANES.PREANE2 ---
Pre-Anesthetic Assessment Height/Weight: Height 1.68 m Weight 68.039 kg Temp Pulse Resp BP Pulse Ox O2 Del Method 97.4 F L 98 16 151/98 96 Room Air 12/29/23 06:39 12/29/23 06:39 12/29/23 06:39 12/29/23 06:39 12/29/23 06:39 12/29/23 06:39 Preop Diagnosis: history of colon cancer Operation Date: 12/29/23 07:40 Proposed Procedures p Colonoscopy - 92585, G0105, Z12.11(Not Applicable) - aDsh Franco MD Familial anesthetic complications: none Last intake: Intake Last Liquid Date 12/29/23 Last Liquid Time 02:00 Last Solid Date 12/28/23 Last Solid Time 08:00 Social No alcohol and No tobacco Marijuana last used 12/27 Exam alert, oriented x 3, clear to auscultation bilaterally and regular rate & rhythm Airway Submandibular: within normal limits Cervical ROM: within normal limits Mallampati: Class I Dentition: false (upper and lower plate removed.) Pulmonary None reported CV/HEM Myocardial Infarction (2009) None reported Hepatic partial liver resection ( from cancer 2017) Cancer involved colon liver and bladder. Colon resection noted as well. GI None reported Metabolic None reported Musc/skel None reported Neuropsych None reported Anesthetic Plan ASA status: 2 Anesthesia: MAC Medications/Allergies Home Medications Medication Instructions Recorded Confirmed Last Taken Type No Known Home Medications 12/24/23 12/24/23 Unknown History Allergies Allergy/AdvReac Type Severity Reaction Status Date / Time No Known Allergies Allergy Verified 12/16/23 08:30 Current Medications Generic Name Dose Route Start Last Admin Trade Name Freq PRN Reason Stop Dose Admin Sodium Chloride 1,000 mls @ 30 mls/hr 12/29/23 06:30 12/29/23 06:51 Sodium Chloride 0.9% IV 30 mls/hr .Q24H MARIA ISABEL Administration PFSH Anesthesia Medical History History of head injury Amputated finger table saw accident Colon cancer History of MA (myocardial infarction) Surgical History (Updated 12/16/23 @ 08:40 by LORENE Ferro) History of cholecystectomy (11/12/16) History of exploratory laparotomy (11/12/16) Exploratory laparotomy with segment VIII liver resection H/O partial resection of colon (08/13/16) Sigmoid colon resection Family History Father Stomach cancer Mother Dementia Brother Esophageal cancer Sister Stroke Heart attack Social History Smoking and tobacco/nicotine status: former use of tobacco/nicotine Quit status (tobacco/nicotine): has quit using Year quit tobacco: 2017 Alcohol intake: never Substance/Drug Use: current Other substance/drug use details: Marijuana Marital status: Data Anesthesia Cardiac Studies: No Data to Display
[2023-12-29 08:06] VITALS: BP 130/87; PULSE 103; RESP 16; TEMP 36.2; O2SAT 94
[2023-12-29 08:20] VITALS: BP 153/92; PULSE 84; RESP 16; O2SAT 95
[2023-12-29 08:30] VITALS: BP 137/93; PULSE 82; RESP 16; O2SAT 95
--- NOTE | 2023-12-29 08:50 | ANE.PACU2 ---
Inpatient post-anesthesia follow up: Airway intact: Yes Vital signs: Temperature 97.2 F Pulse Rate 82 Respiratory Rate 16 Blood Pressure 137/93 Pulse Oximetry 95 Oxygen Delivery Me thod Room Air Oxygen Flow Rate Fraction of Inspir ed Oxygen Hydration adequate: Yes Nausea and vomiting: No Pain level: 1 Mental status: Baseline
== END 2023-12-29 08:50 | disposition home or self-care (01) ==
PROVIDERS: PCP Internal Medicine Medical Oncology; Visit Provider Student in an Organized Health Care Education/Training Program
PROC: 0DJD8ZZ Inspection of Lower Intestinal Tract, Via Natural or Artificial Opening Endoscopic (ICD-10-PCS; CPT 45378; principal; 2023-12-29 07:40)
DX: Z12.11 Encounter for screening for malignant neoplasm of colon (principal); D12.2 Benign neoplasm of ascending colon; I25.2 Old myocardial infarction; Z87.891 Personal history of nicotine dependence; Z85.038 Personal history of other malignant neoplasm of large intestine
CPT/HCPCS: 45385; 88305; J2704; J7030

== ENCOUNTER → 2024-01-19 09:49 | Outpatient (BNVA) | payer MEDICARE, SELFPAY | PROVIDERS: PCP Internal Medicine Medical Oncology; Visit Provider Student in an Organized Health Care Education/Training Program | DX: Z09 Encounter for follow-up examination after completed treatment for conditions other than malignant neoplasm (principal) | CPT/HCPCS: 99214 ==

== ENCOUNTER 2024-12-16 09:04 | Outpatient (CLI) | payer MEDICARE, SELFPAY ==
--- NOTE | 2024-12-16 09:27 | XR_ITS ---
WS: [id number] XR lumbar spine 6V w f/e [id number] REASON FOR EXAM: lumbar pain FINDINGS: Relatively normal lumbar curvatures. No significant compression deformity or focal lesion of the lumbar vertebrae. Mild narrowing of the intervertebral disc spaces at L3-L4 and L4-L5. Moderate narrowing of the disc space at L5-S1. Mild to moderate endplate sclerosis and osteophytosis L3-S1. No spondylolysis. 3 to 4 mm of anterolisthesis of L3 in relation to L4. This listhesis does not change significantly with flexion or extension. No other significant vertebral body movement during flexion or extension. Mild to moderate degenerative arthropathy in the facet joints L3-S1. XR/XR lumbar spine 6V w f/e [id number] IMPRESSION: Degenerative spondylosis as above.
== END 2024-12-16 09:05 | disposition home or self-care (01) ==
PROVIDERS: PCP Internal Medicine Medical Oncology; Visit Provider Nurse Practitioner Family
DX: M51.360 Other intervertebral disc degeneration, lumbar region with discogenic back pain only (principal); M51.370 Other intervertebral disc degeneration, lumbosacral region with discogenic back pain only; M43.16 Spondylolisthesis, lumbar region; M47.817 Spondylosis without myelopathy or radiculopathy, lumbosacral region
CPT/HCPCS: 72114